=== PATIENT | female | born 1960 | race Caucasian/White ===

== ENCOUNTER → 2016-12-26 | Outpatient (CLI) | payer OTHER ==
--- NOTE | 2016-12-26 10:11 | DX ---
Chest, PA and Lateral History: Follow-up pleural effusion post open heart surgery Comparison: January 27, 2013 Findings: The posterior costophrenic gutters are sharp. Haziness in the right costophrenic gutter may be related to breast overlap artifact or a small amount of right lateral basilar atelectasis. Heart size and pulmonary vascularity are normal. Left paramediastinal consolidation in the left upper lobe is stable since January 27, 2013 and is consistent with either chronic left upper lobe segmental atelect asis or scar. Did this patient have prior radiation therapy to the mediastinum? Median sternotomy wir es, CABG clips and aortic mitral and tricuspid valve replacement rings remain in place. Impression:1. No pleural effusion. 2. Stable abnormality in the medial left upper lung since 2012 consistent with a benign process. If f urther characterization is important, then CT with IV contrast could be performed.
== END ==
LOC: CIMAGING 09:26
PROVIDERS: ATTEND Internal Medicine Cardiovascular Disease
DX: J90 Pleural effusion, not elsewhere classified (principal)
CPT/HCPCS: 71020-PO

== ENCOUNTER → 2017-03-18 | Outpatient (CLI) | payer OTHER ==
[~2017-03-18] MED LIST: IOPAMIDOL (ISOVUE-300) 100 ML BTL IV ONE
== END ==
LOC: CIMAGING 14:28
PROVIDERS: ATTEND Internal Medicine
DX: R07.89 Other chest pain (principal); Z85.118 Personal history of other malignant neoplasm of bronchus and lung; Z86.79 Personal history of other diseases of the circulatory system
CPT/HCPCS: 71260-PO; Q9967

== ENCOUNTER → 2017-07-08 | Outpatient (CLI) | payer OTHER | LOC: CIMAGING 07:51 | PROVIDERS: ATTEND Internal Medicine | DX: Z12.31 Encounter for screening mammogram for malignant neoplasm of breast (principal) | CPT/HCPCS: G0202 ==

== ENCOUNTER → 2018-07-12 | Outpatient (CLI) | payer MEDICAID | LOC: CIMAGING 11:03 | PROVIDERS: ATTEND Internal Medicine | DX: Z13.1 Encounter for screening for diabetes mellitus (principal); Z85.118 Personal history of other malignant neoplasm of bronchus and lung ==